=== PATIENT | male | born 1990 | race Caucasian/White ===

== ENCOUNTER 2019-01-11 09:15 | Emergency (ER) | payer SELFPAY ==
[~2019-01-11] VITALS: Ht 167.6 cm; Wt 76.2 kg
[2019-01-11 09:19] VITALS: Ht 167.6 cm; Wt 76.2 kg
[2019-01-11 12:23] VITALS: BP 131/60
== END 2019-01-11 12:32 | disposition home or self-care (01) ==
LOC: ED 09:15
DX: R07.89 Other chest pain (principal); W18.30XA Fall on same level, unspecified, initial encounter; Y93.66 Activity, soccer; Y92.322 Soccer field as the place of occurrence of the external cause; Y99.8 Other external cause status
CPT/HCPCS: J1885

== ENCOUNTER 2019-10-09 19:48 | Emergency (ER) | payer MEDICAID ==
[~2019-10-09] VITALS: Ht 167.6 cm; Wt 86.2 kg
[2019-10-09 19:51] VITALS: Ht 167.6 cm; Wt 86.2 kg
[2019-10-09 21:55] VITALS: BP 137/72
== END 2019-10-09 21:55 | disposition home or self-care (01) ==
LOC: ED 19:48
DX: S39.012A Strain of muscle, fascia and tendon of lower back, initial encounter (principal); X50.9XXA Other and unspecified overexertion or strenuous movements or postures, initial encounter; Y93.89 Activity, other specified; Y92.89 Other specified places as the place of occurrence of the external cause; Y99.8 Other external cause status
CPT/HCPCS: J1885

== ENCOUNTER 2020-01-08 21:16 | Emergency (ER) | payer MEDICAID ==
[~2020-01-08] VITALS: Ht 167.6 cm; Wt 83.9 kg
[2020-01-08 21:38] VITALS: Ht 167.6 cm; Wt 83.9 kg
[2020-01-08 22:25] VITALS: BP 128/87
== END 2020-01-08 22:25 | disposition home or self-care (01) ==
LOC: ED 21:16
DX: S61.215A Laceration without foreign body of left ring finger without damage to nail, initial encounter (principal); S60.417A Abrasion of left little finger, initial encounter; W26.8XXA Contact with other sharp object(s), not elsewhere classified, initial encounter; Y93.89 Activity, other specified; Y92.89 Other specified places as the place of occurrence of the external cause; Y99.8 Other external cause status
CPT/HCPCS: J2001